=== PATIENT | female | born 1930 | race Caucasian/White ===

== ENCOUNTER → 2017-04-12 | Outpatient (CLI) | payer MEDICARE, OTHER ==
[~2017-04-12] MED LIST: ALLO100T70 PO; ASPI-1471 PO; ATOR10TA24 PO; ATOR80TA PO; BENA10TA PO; BENA10TA4 PO; CALC-852 PO; CEPH500C24 PO; CLOB15CR22 TP; DIPH0.5D12 IM; FLU45SYR17 IM; FLU45SYR25 IM ONLY; FLUT9.9S; GABA-547 PO; GLUC-198 PO; HYDR-2966 PO; HYDR-4225 PO; HYDR12.558 PO; LEVO50TA86 PO; LEVO75TA73 PO; MULT-865 PO; NAPR-1043 PO; OXYC-865 PO; PNEU0.5D3 IM
== END ==
LOC: LAB 09:23
PROVIDERS: ATTEND Internal Medicine
DX: E03.9 Hypothyroidism, unspecified (principal)
CPT/HCPCS: 36415; 84443

== ENCOUNTER → 2017-09-15 | Outpatient (CLI) | payer MEDICARE, OTHER | LOC: LAB 07:36 | PROVIDERS: ATTEND Internal Medicine | DX: E03.9 Hypothyroidism, unspecified (principal); E78.2 Mixed hyperlipidemia; I10 Essential (primary) hypertension | CPT/HCPCS: 36415; 82040; 82247; 82310; 82374; 82435; 82465; 82565; 82947; 83718; 84075; 84132; 84155; 84295; 84443; 84450; 84460; 84478; 84520 ==

== ENCOUNTER → 2017-11-08 | Outpatient (CLI) | payer MEDICARE, OTHER ==
[~2017-11-08] MED LIST changes: -BENA10TA4 PO; +BENA10TA55 PO
--- NOTE | 2017-11-08 10:41 | RADIOLOGY IMAGING REPORT ---
FACILITY: [facility] [place] PATIENT NAME: Naomie Lovett : 1930 MR: [id number] V: [id number] EXAM DATE: ORDERING PHYSICIAN: GLYNN IRIZARRY TECHNOLOGIST: Location: [facility] Patient: Naomie Lovett : 1930 Visit/Account:[id number] Date of Sevice: 11/08/2017 DEXA Scan Clinical history: Postmenopausal. Comparison: DEXA scan from 08/15/2009. LUMBAR SPINE: The bone mineral density (BMD) measured from L1-L4 correlates with a Z-score of 3.5 and a T-score of 2 which is Normal as defined by the World Health Organization. The corresponding risk of fracture in the lumbar spine is Not increased compared with a young adult reference population. This value has increased by 9.6 % since the prior study. More than 5% change is considered significant. HIP: Bone mineral density (BMD) measured in the LEFT total hip region correlates with a Z-score 2.8 and a T-score of 0.8 which is normal as defined by the World Health Organization. The corresponding risk of fracture in the hip is Not i ncreased compared to a young adult reference population. This value has decreased by 5.5 % since the prior study. More than 5% change is considered significant. T score left femoral neck -0.6 Bone mineral density (BMD) measured in the Femoral Neck region measures 0.950 g/cm?. IMPRESSION: 1. Lumbar spine: Normal. There has been 9.6% increase in the bone mineral density since the previou s exam. 2. Left Total Hip: Normal. There has been 5.5% decrease in the bone mineral density since the previ ous exam. 3. Femoral Neck: Bone Mineral Density is 0.950 g/cm? The next DEXA scan of this patient should include the following sites: L1-L4 and the left hip. FRAX? WHO Fracture Risk Assessment Tool link: <http://www.shef.ac.uk/FRAX/tool.jsp?locationValue=9> PLEASE NOTE: 1) The World Health Organization defines low BMD as follows: T-score Normal > -1 Osteopenia < -1 and > -2.5 Osteoporosis < -2.5 without fractures Established osteoporosis < -2.5 with fractures 2) In general, you may wish to consider: Diagnosis Treatment Follow-up DEXA Normal BMD Prevention 2-3 years Osteopenia Prevention/therapy 1-2 years Osteoporosis Therapy Yearly 3) Fracture risk estimated from the T-score is more accurate for vertebral fractures (often spontane ous) than for hip fractures. Report Dictated By: Subha De Santiago MD at 11/08/2017 10:36 AM Report E-Signed By: Subha De Santiago MD at 11/08/2017 10:37 AM WSN:[email or web address]
== END ==
LOC: RAD 07:05
PROVIDERS: ATTEND Internal Medicine
DX: Z78.0 Asymptomatic menopausal state (principal)
CPT/HCPCS: 77080

== ENCOUNTER → 2018-03-06 | Outpatient (CLI) | payer MEDICARE, OTHER | LOC: LAB 08:09 | PROVIDERS: ATTEND Internal Medicine | DX: E03.9 Hypothyroidism, unspecified (principal); E78.2 Mixed hyperlipidemia; I10 Essential (primary) hypertension | CPT/HCPCS: 36415; 82040; 82247; 82310; 82374; 82435; 82465; 82565; 82947; 83718; 84075; 84132; 84155; 84295; 84443; 84450; 84460; 84478; 84520 ==

== ENCOUNTER → 2018-10-09 | Outpatient (CLI) | payer MEDICARE, OTHER ==
[~2018-10-09] MED LIST changes: -DIPH0.5D12 IM; +DIPH0.5S2 IM; +GABA-549 PO; +VITA100T5 PO
[2018-10-09 12:22] LABS: PLATELET COUNT, AUTOMATED 239 K/uL (150-450)
== END ==
LOC: LAB 12:01
PROVIDERS: ATTEND Family Medicine
DX: E78.2 Mixed hyperlipidemia (principal); I10 Essential (primary) hypertension; M10.9 Gout, unspecified
CPT/HCPCS: 36415; 82040; 82247; 82310; 82374; 82435; 82565; 82947; 84075; 84132; 84155; 84295; 84443; 84450; 84460; 84520; 84550; 85025